=== PATIENT | female | born 1985 | race Caucasian/White ===

== ENCOUNTER 2022-10-21 10:06 | Outpatient (REF) | payer BC, SELFPAY ==
[2022-10-21 13:02] LABS: Hematocrit 42.8 % (37.0-47.0); Hemoglobin 14.1 g/dl (12.0-16.0); Mean Corpuscular HGB Conc 32.9 g/dl (31.0-35.0); Mean Corpuscular Hemoglobin 29.4 pg (27.0-33.0); Mean Corpuscular Volume 89.2 fL (80.0-98.0); Mean Platelet Volume 10.6 fL (9.4-12.3); Platelet Count 315 X10*3/uL (160-400); Red Cell Distribution Width 12.3 % (11.0-16.0); White Blood Count 10.4 X10*3/uL (4.8-10.8)
[2022-10-21 13:18] LABS: Alanine Aminotransferase 17 U/L (0-31); Alkaline Phosphatase 54 U/L (39-117); Anion Gap 11 (12-20); Aspartate Amino Transferase 17 U/L (5-31); Bilirubin Total 0.6 mg/dL (0.0-1.0); Blood Urea Nitrogen 10 mg/dL (9-16); Calcium 8.9 mg/dL (8.4-10.2); Carbon Dioxide 25 mmol/L (22-29); Chloride 108 mmol/L (96-108); Cholesterol 155 mg/dL; Estimated Glomerular Filt Rate > 60; Glucose Fasting 90 mg/dL (60-99); HDL Cholesterol 75 mg/dL; LDL Cholesterol Calculated 63 mg/dl; Potassium 4.3 mmol/L (3.3-5.1); Sodium 140 mmol/L (135-145); Total Protein 6.8 g/dL (6.5-8.0); Triglycerides 88 mg/dL
[2022-10-21 13:34] LABS: TSH reflex Free T4 0.69 uIU/mL (0.32-4.0)
== END 2022-10-21 10:07 | disposition home or self-care (01) ==
LOC: HO.WFDLDS 10:06
PROVIDERS: Visit Provider Nurse Practitioner Family
DX: Z00.00 Encounter for general adult medical examination without abnormal findings (principal)
CPT/HCPCS: 36415; 80053; 80061; 84443; 85027

== ENCOUNTER 2023-03-16 14:03 | Outpatient (REF) | payer BC, SELFPAY ==
[2023-03-21 09:44] LABS: HPV mRNA E6/E7 rflx Not Detected (Not Detected)
== END 2023-03-16 14:04 | disposition home or self-care (01) ==
LOC: HO.LNP 14:03
PROVIDERS: Obstetrics & Gynecology; PCP Nurse Practitioner Family; Visit Provider Advanced Practice Midwife
DX: Z01.419 Encounter for gynecological examination (general) (routine) without abnormal findings (principal); N90.89 Other specified noninflammatory disorders of vulva and perineum
CPT/HCPCS: 87624; 88142

== ENCOUNTER 2023-03-16 14:03 | Outpatient (AMB) | payer BC, SELFPAY ==
--- NOTE | 2023-03-16 14:35 | MHC.OFFVIS ---
Intake Vital Signs 03/16/23 14:37 Height 5 ft 1 in Weight 130 lb BMI 24.6 BP 102/62 Intake Visit Reasons: New Patient Annual Allergies Seasonal Allergies Allergy (Intermediate, Verified 03/16/23 14:38) Itchy Eyes PFSH Medical History Acid reflux Anxiety Depression Incontinence of urine Sinusitis Skin mole Surgical History Hx of appendectomy Family History Father Hyperlipidemia Diabetes Hypertension Maternal Grandmother Thyroid disorder Psychiatric disorder Maternal Grandfather Psychiatric disorder Hypertension Paternal Grandfather Hypertension Social History Household Members: Spouse Both parents involved: Yes Housing: Apartment Alcohol intake: current Alcohol intake frequency: holidays/special occasions only Alcohol type: wine Patient Tobacco Use Status: Former Tobacco user Years Smoked: 10 e-Cigarette/Vaping Use: Never Used Substance Use Type: Marijuana Current occupational status: employed Current occupation: [email or web address] Current occupational exposures/hazards: No Sexual orientation: Straight/Heterosexual Gender identity: Female Cognitive needs: No Hearing needs: No Vision needs: No Female Reproductive History Menstrual Date of last menstrual period: 03/02/23 Physical Exam Vital Signs: Last Vital Signs BP 102/62 03/16/23 14:37 BMI result Body Mass Index 24.6 Assessment & Plan Assessment & Plan Orders: Orders Pap Smear Today Z01.419 - Encounter for gynecological examination (general) (routine) without abnormal findings Medications: Refilled drospirenone-ethinyl estradiol 3-0.03 mg (Brigette (28)) 1 tab PO DAILY 28 tabs 11RF Coding Diagnoses
--- NOTE | 2023-03-16 14:36 | A.OFFVIS_ITS ---
Intake Vital Signs 03/16/23 14:37 Height 5 ft 1 in Weight 130 lb BMI 24.6 BP 102/62 Intake Visit Reasons: New Patient Annual Intake Note: no concerns Manager Therapy Required: No Information Interpreted: non-clinical & clinical Adolescent Psychiatrist: Adolescent Psychiatrist Present (Mara CHEUNG) Accompanied by: Self / Same As Patient Allergies Seasonal Allergies Allergy (Intermediate, Verified 03/16/23 14:38) Itchy Eyes Is last menstrual period known: Yes Last menstrual period: 03/03/23 HPI HPI Comments History of Present Illness Details Presenting for annual exam. No complaints. The patient is on [place] and would like a refill Last Pap/HPV ? [facility] Medical History Acid reflux Anxiety Depression Incontinence of urine Sinusitis Skin mole Surgical History Hx of appendectomy Family History Father Hyperlipidemia Diabetes Hypertension Maternal Grandmother Thyroid disorder Psychiatric disorder Maternal Grandfather Psychiatric disorder Hypertension Paternal Grandfather Hypertension Social History Household Members: Spouse Both parents involved: Yes Housing: Apartment Alcohol intake: current Alcohol intake frequency: holidays/special occasions only Alcohol type: wine Patient Tobacco Use Status: Former Tobacco user Years Smoked: 10 e-Cigarette/Vaping Use: Never Used Substance Use Type: Marijuana Current occupational status: employed Current occupation: [employer] Current occupational exposures/hazards: No Sexually active: Yes Sexual orientation: Straight/Heterosexual Gender identity: Female Cognitive needs: No Hearing needs: No Vision needs: No Female Reproductive History Menstrual Date of last menstrual period: 03/03/23 Total pregnancies: 0 Number of Living Children: 0 Review of Systems Const All systems reviewed & are unremarkable except as noted in HPI and below Card Reports as per HPI Resp Reports as per HPI GI Reports as per HPI and Reports no additional complaints Reports as per HPI Physical Exam Vital Signs: Last Vital Signs BP 102/62 03/16/23 14:37 BMI result Body Mass Index 24.6 Const General: cooperative, healthy appearing and comfortable Chest Chest palpation & inspection: normal inspection of the chest and normal palpation of entire chest wall Breast/axilla inspection: normal inspection of the breasts and normal inspection of the axillae Breast/axilla palpation: normal palpation of the breasts, normal palpation of the axillae and no axillary lymphadenopathy Resp Effort & Inspection: normal respiratory effort Auscultation: clear to auscultation bilaterally Percussion: percussion normal Cardio Palpation: normal PMI Rate: regular rate Rhythm: regular rhythm Heart sounds: no murmurs and no rubs Peripheral pulses: Peripheral pulses 2+ throughout GI Inspection: Yes normal to inspection Palpation (GI): Soft to palpation, nontender, no guarding, not rigid and No hepatosplenomegaly present Percussion: Yes normal to percussion Auscultation: normal bowel sounds Rectal Exam - Female: deferred General: Yes bladder normal to palpation External Female Exam: lesion (Left vulvar 1.5 cm pedunculated lesion) Speculum Exam - Vagina: normal appearance of the vagina, normal palpation, normal vaginal discharge and not erythematous Speculum Exam - Cervix: normal appearance of the cervix and normal palpation Bimanual exam- vagina & uterus: normal bimanual exam, normal palpation, uterine size normal, bladder normal to palpation, consistency normal and normal palpation Bimanual Exam- Adnexa, other: normal adnexae, no masses and no tenderness Assessment & Plan Assessment & Plan (1) Well woman exam: Code(s): Z01.419 - Encounter for gynecological examination (general) (routine) without abnormal findings Plan: Cotesting done. Prescription for control pills refilled. The patient was instructed to perform monthly self-breast exams and to schedule an annual exam in a year; All questions answered and the patient verbalized understanding. Instructed the patient to schedule annual exam in a year (2) Vulvar lesion: Code(s): N90.89 - Other specified noninflammatory disorders of vulva and perineum Plan: Recommended vulvar lesion excision, instructions given the patient to schedule an appointment. All questions answered, the patient verbalized understanding Medications: Refilled drospirenone-ethinyl estradiol 3-0.03 mg (Brigette (28)) 1 tab PO DAILY 28 tabs 11RF Coding Level of Care Code New Pt Prev Care 18-39yr(66299 Diagnoses Well woman exam Z01.419 Vulvar lesion N90.89
[2023-03-16 14:37] VITALS: BP 102/62; BMI 24.6
== END 2023-03-16 15:09 | disposition home or self-care (01) ==
PROVIDERS: PCP Nurse Practitioner Family; Visit Provider Obstetrics & Gynecology
DX: Z01.419 Encounter for gynecological examination (general) (routine) without abnormal findings (principal); N90.89 Other specified noninflammatory disorders of vulva and perineum
CPT/HCPCS: 99385

== ENCOUNTER 2023-04-14 14:45 | Outpatient (AMB) | payer BC, SELFPAY ==
[2023-04-14 15:14] VITALS: BP 108/64; BMI 24.7
--- NOTE | 2023-04-14 15:14 | A.OFFVIS_ITS ---
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 Required: No Information Interpreted: non-clinical & clinical Cloth Packer: Cloth Packer Present (Mara) Allergies Seasonal Allergies Allergy (Intermediate, Verified 04/14/23 15:15) Itchy Eyes Post menopausal: No PFSH Medical History Acid reflux Anxiety Depression Incontinence of urine Sinusitis Skin mole Surgical History Hx of appendectomy Family History Father Hyperlipidemia Diabetes Hypertension Maternal Grandmother Thyroid disorder Psychiatric disorder Maternal Grandfather Psychiatric disorder Hypertension Paternal Grandfather Hypertension Social History Household Members: Spouse Both parents involved: Yes Housing: Apartment Alcohol intake: current Alcohol intake frequency: holidays/special occasions only Alcohol type: wine Patient Tobacco Use Status: Former Tobacco user Years Smoked: 10 e-Cigarette/Vaping Use: Never Used Substance Use Type: Marijuana Current occupational status: employed Current occupation: [employer] Current occupational exposures/hazards: No Sexual orientation: Straight/Heterosexual Gender identity: Female Cognitive needs: No Hearing needs: No Vision needs: No Female Reproductive History Menstrual Date of last pap smear: 03/17/23 (negative) Physical Exam Vital Signs: Last Vital Signs BP 108/64 04/14/23 15:14 BMI result Body Mass Index 24.7 Office Procedures CURRICULUM AND ASSESSMENT COORDINATOR Biopsy Before the procedure was started d/w patient the procedure, alternatives ( do nothing, medical rx), & all the risks associated with the procedure ( bleeding , infection, vulvar scarring, painful intercourse, injury to vessels, possible need for transfusion with all its risks) then patient signed the consent. Preop dx: Left labia majora lesion Op: Left labia majora lesion excision Post op: Same Anesthesia: Lidocaine 1% 3cc used Procedure: Using betadine the area was scrubbed and draped in the usual manner. 7 cc of lidocaine was used for anesthesia at the left Left labia majora lesion area ; using scissors and pickup the left vulvar lesion was excised, 4.0 Vicryl was used to approximate the edges. Pressure was used for hemostasis. The patient tolerated the procedure well. Discharge Instructions: The patient was instructed to schedule an appointment in 2 weeks for follow-up and to call if temp>100.4, area of the biopsy redness or pain, nausea/vomiting. This note was generated with a voice recognition program. Some errors may have been overlooked during the review of this note. Sometimes these errors may affect the content or meaning of a given sentence. [id number] of Vulva/Perineum Procedure code (CPT) selection complete Assessment & Plan Assessment & Plan Orders: Orders AMB CURRICULUM AND ASSESSMENT COORDINATOR Biopsy Today N90.89 - Other specified noninflammatory disorders of vulva and perineum Coding Level of Care Code Procedure Only Diagnoses CPT Codes CURRICULUM AND ASSESSMENT COORDINATOR Biopsy - CPT: 81765-Jdrpdd of Vulva/Perineum ([id number])
== END 2023-04-14 15:41 | disposition home or self-care (01) ==
PROVIDERS: PCP Nurse Practitioner Family; Visit Provider Obstetrics & Gynecology
DX: N90.89 Other specified noninflammatory disorders of vulva and perineum (principal)
CPT/HCPCS: 56605

== ENCOUNTER 2023-04-14 14:45 | Outpatient (REF) | payer BC, SELFPAY | END 2023-04-14 14:46 | disposition home or self-care (01) | LOC: HO.LNP 14:45 | PROVIDERS: PCP Nurse Practitioner Family; Visit Provider Obstetrics & Gynecology | DX: N90.89 Other specified noninflammatory disorders of vulva and perineum (principal) | CPT/HCPCS: 56605; 88305 ==

== ENCOUNTER 2023-06-23 15:18 | Outpatient (AMB) | payer BC, SELFPAY ==
--- NOTE | 2023-06-23 15:25 | MHC.OFFVIS ---
Intake Vital Signs 06/23/23 15:27 Height 5 ft 1 in Weight 130 lb 1.164 oz BMI 24.6 BP 116/76 Intake Visit Reasons: Biopsy Results/DO NOT RS Compressor Mechanic Bus Required: No Information Interpreted: non-clinical & clinical Accompanied by: Self / Same As Patient Allergies Seasonal Allergies Allergy (Intermediate, Verified 06/23/23 15:28) Itchy Eyes HPI HPI Comments History of Present Illness Details Presenting post vulvar biopsy for follow-up. Doing well with no complaints. The pathology showed the following: Vulva, left, biopsy: Dermal nevus [facility] Medical History Skin mole Depression Anxiety Incontinence of urine Acid reflux Sinusitis Surgical History Hx of appendectomy Family History Father Hyperlipidemia Diabetes Hypertension Maternal Grandmother Thyroid disorder Psychiatric disorder Maternal Grandfather Psychiatric disorder Hypertension Paternal Grandfather Hypertension Social History Household Members: Spouse Both parents involved: Yes Housing: Apartment Alcohol intake: current Alcohol intake frequency: holidays/special occasions only Alcohol type: wine Patient Tobacco Use Status: Former Tobacco user Years Smoked: 10 e-Cigarette/Vaping Use: Never Used Substance Use Type: Marijuana Current occupational status: employed Current occupation: [employer] Current occupational exposures/hazards: No Sexual orientation: Straight/Heterosexual Gender identity: Female Cognitive needs: No Hearing needs: No Vision needs: No Female Reproductive History Menstrual Date of last menstrual period: 06/22/23 Review of Systems Const All systems reviewed & are unremarkable except as noted in HPI and below Reports as per HPI and Reports no additional complaints GI Reports no additional complaints Reports no additional complaints Physical Exam Vital Signs: Last Vital Signs BP 116/76 06/23/23 15:27 BMI result Body Mass Index 24.6 Assessment & Plan Assessment & Plan (1) Vulvar lesion: Comment: Left labia majora lesion Code(s): N90.89 - Other specified noninflammatory disorders of vulva and perineum Plan: Discussed with the patient the results of the pathology, the patient was reassured. All questions answered, the patient verbalized understanding . Coding Level of Care Code Est Pt Level 3 (73045) Diagnoses Vulvar lesion N90.89
[2023-06-23 15:27] VITALS: BP 116/76; BMI 24.6
== END 2023-06-23 15:47 | disposition home or self-care (01) ==
PROVIDERS: PCP Nurse Practitioner Family; Visit Provider Obstetrics & Gynecology
DX: N90.89 Other specified noninflammatory disorders of vulva and perineum (principal)
CPT/HCPCS: 99213

== ENCOUNTER → 2023-06-23 15:18 | Outpatient (BNVA) | payer BC, SELFPAY | PROVIDERS: PCP Nurse Practitioner Family; Visit Provider Obstetrics & Gynecology ==

== ENCOUNTER 2023-10-26 14:39 | Outpatient (AMB) | payer BC, SELFPAY ==
[2023-10-26 14:49] VITALS: BP 122/78; PULSE 85; RESP 13; TEMP 36.6; O2SAT 99; BMI 25.0
--- NOTE | 2023-10-26 14:49 | A.OFFPC_ITS ---
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 Required: No Accompanied by: Self / Same As Patient Allergies Seasonal Allergies Allergy (Severe, Verified 10/26/23 15:03) Itchy Eyes Medication List - Last Reconciled 10/26/23 by Isabel Magallanes CNP cetirizine (Zyrtec) 10 mg PO DAILY PRN drospirenone-ethinyl estradiol 3-0.03 mg (Brigette (28)) 1 tab PO DAILY fluticasone propionate 50 mcg/actuation (Flonase Allergy Relief) 1 spray intranasal DAILY Tobacco use date assessed: 10/26/23 Dental Screening Dental Screen Date: 10/26/23 Did you have a dental visit in the last 12 months?: Yes Did you have a dental problem in the last 6 months where you did not have access to dental care?: No Was dental information given to patient?: Patient has dentist HPI HPI Comments History of Present Illness Details 38 y/o female presents for an extended p hysical exam No significant PMH She reports waking up 2-3 times several nights weekly for the 2-3 weeks. She used to not wake up to urinate or would wake up 1 time at night She denies urinary urgency, blood/pain/discharge with urination. Denies constitutional symptoms. She reports adequate hydration during the day but denies excessive fluid intake at night Last Pap smear test was in 03/2023: Normal She notes that she is sexually active, in a monogamous relationship, and has no concerns for STD PFSH Medical History Skin mole Depression Anxiety Incontinence of urine Acid reflux Sinusitis Surgical History Hx of appendectomy Family History (Updated 10/26/23 @ 14:54 by Renuka Her MA) Father Hyperlipidemia Diabetes Hypertension Maternal Grandmother Thyroid disorder Psychiatric disorder Maternal Grandfather Psychiatric disorder Hypertension Paternal Grandfather Hypertension Other Mental health disorder Social History Household Members: Spouse Housing: Apartment Alcohol intake: current Alcohol intake frequency: holidays/special occasions only Alcohol type: wine Patient Tobacco Use Status: Former Tobacco user Years Smoked: 10 e-Cigarette/Vaping Use: Former Use Substance Use Type: Marijuana service: No Current occupational status: employed Current occupation: [employer] Current occupational exposures/hazards: No Sexual orientation: Straight/Heterosexual Gender identity: Female Cognitive needs: No Hearing needs: No Vision needs: No Questionnaire PHQ-9 Over the last 2 weeks, how often have you been bothered by any of the following problems? 1. Little interest or pleasure in doing things: not at all 2. Feeling down, depressed, or hopeless: not at all 3. Trouble falling or staying asleep, or sleeping too much: not at all 4. Feeling tired or having little energy: not at all 5. Poor appetite or overeating: not at all 6. Feeling bad about yourself - or that you are a failure or have let yourself or your family down: not at all 7. Trouble concentrating on things, such as reading the newspaper or watching television: not at all 8. Moving or speaking so slowly that other people could have noticed. Or the opposite - being so fidgety or restless that you have been moving around a lot more than usual: not at all 9. Thoughts that you would be better off or of hurting yourself in some way: not at all Total score: 0 Depression Screening Interpretation: Negative Depression Screening Done: Yes 51693 - PHQ-9 Billing: Yes Source: Developed by Drs. Reji Polanco, Kylah Israel, Jonny Red and colleagues, with an educational riya from [employer]. Thrive Questionnaire Date Thrive assessed: 10/26/23 I am a: Patient What is your living situation today?: I have a steady place to live Within the past 12 months, did the food you bought not last and you didn't have the money to get more?: Never true Within the past 12 months, did you worry whether your food would run out before you got money to buy more?: Never true Do you have trouble paying for medicines?: No Do you have trouble getting transportation to medical appointments?: No Do you have trouble paying your heating and electricity bill?: No Do you have trouble taking care of your child, family member or friend?: No Do you have trouble with day-to-day activities such as bathing, preparing meals, shopping, managing finances, etc.?: No Are you currently unemployed and looking for a job?: No Are you interested in more education?: No Please select the resources that you would like help with: None Currently or been in a relationship where the following occur: no concerns reported THRIVE Score: 0 AUDIT C Alcohol Use Questionnaire (AUDIT-C) 1. How often do you have a drink containing alcohol?: Monthly or less 2. How many drinks containing alcohol do you have on a typical day when you are drinking?: 1 or 2 3. How often do you have six or more drinks on one occasion?: Never Total Score: 1 NELI-7 AMB Questionnaire NELI-7 Date NELI - 7 assessed: 10/26/23 Feeling nervous, anxious, or on edge: 0 = Not at all Not being able to stop or control worryin = Not at all Worrying too much about different things: 0 = Not at all Trouble relaxin = Not at all Being so restless that it is hard to sit still: 0 = Not at all Becoming easily annoyed or irritable: 0 = Not at all Feeling afraid as if something awful might happen: 0 = Not at all Total NELI-7 score (0-4 normal; 5-9 mild; 10-14 moderate; 15-21 severe): 0 Source: Developed by Drs. Rjei Polanco, Kylah Israel, Jonny Red and colleagues, with an educational riya from [employer]. NELI-7 Assessment Billing NELI-7 Assessment Tool: NELI-7 Assessment 85944 Review of Systems Const Details: Denies chills, Denies fatigue, Denies fever(s), Denies headache(s) and Denies weakness HEENT Denies change in vision, Denies dizziness, Denies headache(s), Denies hearing loss, Denies nasal congestion, Denies sinus pain, Denies sinus pressure and Denies sore throat Card Denies chest pain, Denies lightheadedness, Denies dyspnea and Denies other (palpitations) Resp Denies cough, Denies dyspnea and Denies wheezing GI Denies abdominal pain, Denies melena, Denies hematochezia, Denies change in bowel habits, Denies dyspepsia and Denies nausea Reports frequent urination, Denies hematuria and Denies dysuria Musc Denies abnormal gait, Denies myalgias, Denies arthralgias, Denies numbness and Denies tingling Skin/Breast Denies rash, Denies unusual bruising and Denies wounds Neuro Denies abnormal gait, Denies dizziness, Denies headache(s), Denies memory loss, Denies numbness, Denies Sensory deficit (Neuro), Denies tingling and Denies weakness Psych Denies anxiety, Denies depression and Denies memory loss Endo Denies cold intolerance, Denies fatigue, Denies heat intolerance, Denies polydipsia and Denies polyuria Albino/Lymph Denies easy bleeding and Denies easy bruising Aller/Immun Denies wheezing Physical exam (Primary Care) Vital Signs: Last Vital Signs Temp 97.8 F 10/26/23 14:49 Pulse 85 10/26/23 14:49 Resp 13 10/26/23 14:49 BP 122/78 10/26/23 14:49 Pulse Ox 99 10/26/23 14:49 Oxygen Delivery Method Room Air 10/26/23 14:49 BMI result Body Mass Index 25.0 Tobacco/Smoking Status: Tobacco use Status Tobacco use date assessed 10/26/23 10/26/23 14:57 Patient Tobacco Use Status Former Tobacco user 10/26/23 14:57 e-Cigarette/Vaping Use Former Use 10/26/23 14:57 PHQ-9: PHQ-9 Score PHQ-9: Total score 0 10/26/23 15:03 Depression Screening Interpretation: Negative Thrive Assessment: Date of Thrive Assessment Date Thrive assessed 10/26/23 10/26/23 14:57 Currently or been in a relationship where the following occur: no concerns reported Const Other: General: no acute distress, well developed, alert and awake Nutritional Appearance: well nourished Orientation/consciousness: patient oriented x3 HENMT Head: Yes normocephalic and Yes atraumatic Ears: hearing grossly normal bilaterally and TM's normal bilaterally General nose exam: Normal external nose present and Normal nares present Mouth: Normal oral and palatal mucosa present and moist mucous membranes Teeth and gingiva: dentition normal Throat: Yes oropharynx normal Eyes Pupils: Equal, round and reactive pupils present and Pupil accommodation reflex normal EOM: EOMs intact bilaterally Neck Neck: Yes normal visual inspection, Yes no lymphadenopathy and Yes trachea midline Thyroid: Thyroid normal Carotids: no bruits Lymphatic: no lymphadenopathy noted Chest Chest palpation & inspection: normal inspection of the chest Resp Effort & Inspection: normal respiratory effort Auscultation: clear to auscultation bilaterally Cardio Rate: regular rate Rhythm: regular rhythm Heart sounds: S1 normal heart sound present, S2 normal heart sound present, no gallops, no murmurs and no rubs Bruits: no abdominal aortic bruits and no carotid bruits GI Palpation (GI): No Abdominal aortic bruit present, Soft to palpation, nontender, No hepatosplenomegaly present and No Rebound tenderness present Auscultation: normal bowel sounds General: Yes no CVA tenderness Back/Spine/Pelvis Back: no CVA tenderness Cervical Spine: cervical ROM normal and No Cervical spine tenderness Thoracic/Lumbar Spine: thoraco-lumbar ROM normal, No pain with thoraco-lumbar ROM, No thoracic spinal tenderness and No lumbar spinal tenderness Skin General: warm and dry. Normal skin color. Normal skin turgor Lesions: no lesions Rashes: no rashes Trauma: no lacerations or abrasions Wounds: no wounds Nails: normal Neuro General: patient oriented x3, gait normal and CN's II-XI intact bilaterally Cranial nerves: Yes Equal, round and reactive pupils present Cognition (Neuro): normal cognition Gait exam (Neuro): Normal gait present Motor exam (neuro): 5/5 motor strength present throughout Sensory Exam: No Sensory deficit (Neuro) Deep tendon reflexes (DTR's): Right patellar reflex intensity grade: 2+ and Left patellar reflex intensity grade: 2+ Extrem General: Yes normal to inspection, No edema and No calf tenderness Psych Appearance: grossly normal Affect: normal affect Attitude: cooperative Thought process: Normal thought process present Assessment and Plan Assessment & Plan (1) Physical exam, annual: Code(s): Z00.00 - Encounter for general adult medical examination without abnormal findings Plan: No significant physical restrictions or limitations noted Healthy diet and routine exercise encouraged Advised to get fasting blood work done and follow-up in 2-3 weeks for telehealth visit for labs review Return sooner with symptoms or concerns Verbalized understanding and agreed with treatment plan (2) Frequent urination at night: Code(s): R35.1 - Nocturia Plan: Reports waking up 2-3 times every night to urinate for the past 2-3 weeks. No associated symptoms Sleep hygiene, occluding limiting hydration before bedtime Will check urinalysis for UTI Will also check fasting glucose Advised to follow-up with worsening or new symptoms Verbalized understanding and agreed with the plan (3) Laboratory tests ordered as part of a complete physical exam (CPE): Code(s): Z00.00 - Encounter for general adult medical examination without abnormal findings Plan: Fasting labs ordered as part of a complete physical exam. Advised to fast for at least 10 hours before getting labs drawn. May drink water Verbalized understanding and agreed with treatment plan. Orders: Orders UA CC w/rflx Micro + Cult Today Z00.00 - Encounter for general adult medical examination without abnormal findings Complete Blood Count Auto Diff Today Z00.00 - Encounter for general adult medical examination without abnormal findings Comprehensive Delta. Panel Fast Today Z00.00 - Encounter for general adult medical examination without abnormal findings Lipid Panel Today Z00.00 - Encounter for general adult medical examination without abnormal findings TSH reflex Free T4 Today Z00.00 - Encounter for general adult medical examination without abnormal findings Coding Level of Care Code Est Pt Prev Care 18-39y(18811) Diagnoses Physical exam, annual Z00.00 Frequent urination at night R35.1 Laboratory tests ordered as part of a complete physical exam (CPE) Z00.00 Additional Codes NELI-7 Assessment Billing - NELI-7 Assessment Tool: NELI-7 Assessment 41392 ([id number])
== END 2023-10-26 15:29 | disposition home or self-care (01) ==
PROVIDERS: Visit Provider Nurse Practitioner Family
DX: Z00.00 Encounter for general adult medical examination without abnormal findings (principal); R35.1 Nocturia
CPT/HCPCS: 99395

== ENCOUNTER 2023-10-27 07:07 | Outpatient (REF) | payer BC, SELFPAY ==
[2023-10-27 11:19] LABS: MANUAL DIFF FLAG NO
[2023-10-27 11:27] LABS: Appearance Urine Clear; Color Urine Yellow; Glucose Urine UA Negative (Negative); Leukocyte Esterase Urine Negative (Negative); Nitrite Urine Negative (Negative); PH 5.5 (5.0-9.0); Specific Gravity - Urine <= 1.005 (1.005-1.025); Urine Blood Negative (Negative); Urine Ketones Negative (Negative); Urine Protein Negative (Neg-Trace)
[2023-10-27 11:33] LABS: Basophils Absolute Auto 0.1 X10*3/uL (0.0-0.2); Basophils Percent Auto 0.4 % (0-2); Eosinophils Absolute Auto 0.5 X10*3/uL (0.0-0.4); Hematocrit 41.5 % (37.0-47.0); Hemoglobin 13.7 g/dl (12.0-16.0); Imm Gran Abs Auto 0.05 X10*3/uL (0.00-0.03); Imm Gran Pct Auto 0.4 % (0.0-0.4); Lymphocytes Absolute Auto 3.4 X10*3/uL (1.2-4.9); Lymphocytes Percent Auto 30.2 % (20-40); Mean Corpuscular Hemoglobin 29.3 pg (27.0-33.0); Mean Corpuscular Volume 88.9 fL (80.0-98.0); Mean Platelet Volume 11.3 fL (9.4-12.3); Monocytes Absolute Auto 0.7 X10*3/uL (0.1-1.2); Monocytes Percent Auto 6.7 % (2-11); Neutrophils Absolute Auto 6.5 x10*3/uL (2.0-8.3); Neutrophils Percent Auto 58.3 % (45-73); Platelet Count 303 X10*3/uL (160-400); Red Blood Count 4.67 X10*6/uL (4.20-5.50); Red Cell Distribution Width 12.6 % (11.0-16.0); White Blood Count 11.1 X10*3/uL (4.8-10.8)
[2023-10-27 12:39] LABS: Alanine Aminotransferase 14 U/L (0-31); Albumin Level 3.8 g/dL (3.5-5.0); Alkaline Phosphatase 56 U/L (39-117); Anion Gap 12 (12-20); Aspartate Amino Transferase 17 U/L (5-31); Bilirubin Total 0.4 mg/dL (0.0-1.0); Blood Urea Nitrogen 8 mg/dL (9-16); Calcium 9.1 mg/dL (8.4-10.2); Carbon Dioxide 24 mmol/L (22-29); Chloride 106 mmol/L (96-108); Cholesterol 138 mg/dL (<200); Estimated Glomerular Filt Rate > 60; Glucose Fasting 89 mg/dL (60-99); HDL Cholesterol 73 mg/dL (>40); LDL Cholesterol Calculated 44 mg/dL (<100); Potassium 3.8 mmol/L (3.3-5.1); Sodium 138 mmol/L (135-145); TSH reflex Free T4 0.93 uIU/mL (0.32-4.0); Total Protein 6.9 g/dL (6.5-8.0); Triglycerides 109 mg/dL (<150)
== END 2023-10-27 07:08 | disposition home or self-care (01) ==
LOC: HO.WFDLDS 07:07
PROVIDERS: Visit Provider Nurse Practitioner Family
DX: Z00.00 Encounter for general adult medical examination without abnormal findings (principal); Z13.6 Encounter for screening for cardiovascular disorders
CPT/HCPCS: 36415; 80053; 80061; 81003; 84443; 85025

== ENCOUNTER 2023-11-16 15:49 | Outpatient (AMB) | payer BC, SELFPAY ==
--- NOTE | 2023-11-16 16:04 | MHC.PC.OV ---
Intake Visit Reasons: follow up lab review Intake Note: Patient is here to follow up on Lab results. Seismic Interpreter Required: No Track Manager: Not Required per policy Accompanied by: Self / Same As Patient Allergies Seasonal Allergies Allergy (Severe, Verified 11/16/23 16:08) Itchy Eyes Tobacco use date assessed: 11/16/23 Dental Screening Dental Screen Date: 10/26/23 HPI HPI Comments History of Present Illness Details Patient presents for telehealth visit for review of recent lab results She denies acute symptoms at this time She had an extended physical exam done on 10/26/2023 She reports improved nocturia after she cut down on drinking fluids at night; now 1-2 times several days a week, from 2-3 times weekly. No pain, discharge, or bloody urine [facility] Medical History Skin mole Depression Anxiety Incontinence of urine Acid reflux Sinusitis Surgical History Hx of appendectomy Family History Father Hyperlipidemia Diabetes Hypertension Maternal Grandmother Thyroid disorder Psychiatric disorder Maternal Grandfather Psychiatric disorder Hypertension Paternal Grandfather Hypertension Other Mental health disorder Social History Household Members: Spouse Both parents involved: Yes Housing: Apartment Alcohol intake: current Alcohol intake frequency: holidays/special occasions only Alcohol type: wine Patient Tobacco Use Status: Former Tobacco user Years Smoked: 10 e-Cigarette/Vaping Use: Former Use Second Hand Smoke Exposure: Yes Substance Use Type: Marijuana service: No Current occupational status: employed Current occupation: [employer] Current occupational exposures/hazards: No Sexual orientation: Straight/Heterosexual Gender identity: Female Cognitive needs: No Hearing needs: No Vision needs: No Questionnaire Thrive Questionnaire Date Thrive assessed: 10/26/23 NELI-7 AMB Questionnaire NELI-7 Date NELI - 7 assessed: 10/26/23 Source: Developed by Drs. Reji Polanco, Kylah Israel, Jonny Red and colleagues, with an educational riya from [employer]. Review of Systems Const Details: Const Denies chills, Denies fatigue, Denies fever(s), Denies headache(s) and Denies weakness ENT Denies dizziness and Denies headache(s) Card Denies chest pain, Denies lightheadedness, Denies dyspnea and Denies other (Palpitations) Resp Denies cough, Denies dyspnea, Denies wheezing and Denies other ( shortness of breath) GI Denies abdominal pain, Denies melena, Denies hematochezia, Denies change in bowel habits, Denies dyspepsia and Denies nausea Reports nocturia, Denies hematuria and Denies dysuria Musc Denies abnormal gait, Denies myalgias, Denies arthralgias, Denies numbness and Denies tingling Skin/Breast Denies rash, Denies unusual bruising and Denies wounds Neuro Denies abnormal gait, Denies dizziness, Denies headache(s), Denies memory loss, Denies numbness, Denies Sensory deficit (Neuro), Denies tingling and Denies weakness Psych Denies anxiety, Denies depression, Denies memory loss Endo Denies cold intolerance, Denies fatigue, Denies heat intolerance, Denies polydipsia and Denies polyuria Aller/Immun Denies wheezing Physical exam (Primary Care) Tobacco/Smoking Status: Tobacco use Status Tobacco use date assessed 11/16/23 11/16/23 16:08 Patient Tobacco Use Status Former Tobacco user 11/16/23 16:08 e-Cigarette/Vaping Use Former Use 11/16/23 16:08 Thrive Assessment: Date of Thrive Assessment Date Thrive assessed 10/26/23 11/16/23 16:08 Const Other: Telehealth visit. No physical exam Telehealth Telehealth Location of provider rendering services: practice address Location of patient: address on file Patient Identification confirmed using: Name, : Yes Telehealth method: voice only Patient verbally consented to treatment: Yes Patient verbally consented to billing insurance company: Yes Patient informed of any privacy concerns related to visit: Yes Assessment and Plan Assessment & Plan (1) Frequent urination at night: Code(s): R35.1 - Nocturia Plan: Improved to 1-2 times nightly from 2-3 times nightly after she cut down on nighttime fluid intake Recent lab results reviewed. Unremarkable findings No UTI Instructed on sleep hygiene to reduce nocturia Advised to schedule an appointment for complete physical exam in a year from her last physical Return sooner with symptoms or concerns Verbalized understanding and agreed with the treatment plan Coding Level of Care Code Tele Est Pt Level 2 (32798) Diagnoses Frequent urination at night R35.1 Time Spent (min) 10
== END 2023-11-16 17:03 | disposition home or self-care (01) ==
LOC: HO.HMGFM 15:49
PROVIDERS: PCP Nurse Practitioner Family; Visit Provider Nurse Practitioner Family
DX: R35.1 Nocturia (principal)
CPT/HCPCS: 99441

== ENCOUNTER 2024-05-12 | Outpatient (REF) | payer BC, SELFPAY ==
[2024-05-14 14:19] LABS: CT PCR NOT DETECTED (Not Detect.); NG PCR NOT DETECTED (Not Detect.)
== END 2024-05-12 00:01 | disposition home or self-care (01) ==
LOC: HO.LNP
PROVIDERS: Visit Provider Obstetrics & Gynecology
DX: R10.2 Pelvic and perineal pain (principal)
CPT/HCPCS: 87491; 87591

== ENCOUNTER 2024-05-12 14:56 | Outpatient (AMB) | payer BC, SELFPAY ==
[2024-05-12 15:01] VITALS: BP 110/70; BMI 23.4
--- NOTE | 2024-05-12 15:01 | A.OFFVIS_ITS ---
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 Complaining of cyclic premenstrual headache on cyclic control pills and pelvic pain with no associated urinary or GI symptoms no vaginal discharge or bleeding. Last Pap/HPV was negative in 04/01 [facility] Medical History Skin mole Depression Anxiety Incontinence of urine Acid reflux Sinusitis Surgical History Hx of appendectomy Family History Father Hyperlipidemia Diabetes Hypertension Maternal Grandmother Thyroid disorder Psychiatric disorder Maternal Grandfather Psychiatric disorder Hypertension Paternal Grandfather Hypertension Other Mental health disorder Social History Household Members: Spouse Both parents involved: Yes Housing: Apartment Alcohol intake: current Alcohol intake frequency: holidays/special occasions only Alcohol type: wine Patient Tobacco Use Status: Former Tobacco user Years Smoked: 10 e-Cigarette/Vaping Use: Former Use Second Hand Smoke Exposure: Yes Substance Use Type: Marijuana service: No Current occupational status: employed Current occupation: [email or web address] Current occupational exposures/hazards: No Sexual orientation: Straight/Heterosexual Gender identity: Female Cognitive needs: No Hearing needs: No Vision needs: No Female Reproductive History Menstrual Date of last menstrual period: 04/25/24 control method: pills Total pregnancies: 0 Date of last pap smear: 03/16/23 (neg pap and hpv) Review of Systems Const All systems reviewed & are unremarkable except as noted in HPI and below Card Reports as per HPI Resp Reports as per HPI GI Reports as per HPI and Reports no additional complaints Reports as per HPI Physical Exam Vital Signs: BMI result Body Mass Index 23.4 Const General: cooperative, healthy appearing and comfortable Chest Chest palpation & inspection: normal inspection of the chest and normal palpation of entire chest wall Breast/axilla inspection: normal inspection of the breasts and normal inspection of the axillae Breast/axilla palpation: normal palpation of the breasts, normal palpation of the axillae and no axillary lymphadenopathy Resp Effort & Inspection: normal respiratory effort Auscultation: clear to auscultation bilaterally Percussion: percussion normal Cardio Palpation: normal PMI Rate: regular rate Rhythm: regular rhythm Heart sounds: no murmurs and no rubs Peripheral pulses: Peripheral pulses 2+ throughout GI Inspection: Yes normal to inspection Palpation (GI): Soft to palpation, nontender, no guarding, not rigid and No hepatosplenomegaly present Percussion: Yes normal to percussion Auscultation: normal bowel sounds Rectal Exam - Female: deferred General: Yes bladder normal to palpation External Female Exam: No lesion Speculum Exam - Vagina: normal appearance of the vagina, normal palpation, normal vaginal discharge and not erythematous Speculum Exam - Cervix: normal appearance of the cervix and normal palpation Bimanual exam- vagina & uterus: normal bimanual exam, normal palpation, uterine size normal, bladder normal to palpation, consistency normal and normal palpation Bimanual Exam- Adnexa, other: normal adnexae, no masses and no tenderness Assessment & Plan Assessment & Plan (1) Well woman exam: Code(s): Z01.419 - Encounter for gynecological examination (general) (routine) without abnormal findings Category: Medical Plan: Cotesting not indicated this year. Counseled the patient about the recommended dietary allowance of 1000 mg of Calcium & 600 IU of vitamin D. The patient was instructed to perform monthly self-breast exams and to schedule an annual exam in a year; All questions answered and the patient verbalized understanding. Instructed the patient to schedule annual exam in a year (2) Pelvic pain: Code(s): R10.2 - Pelvic and perineal pain Category: Medical Plan: Urine dip and test done in the office were both negative. GC and chlamydia taken and pelvic ultrasound ordered. Discussed with the patient the differential diagnosis of pelvic pain including but not limited to adnexal, uterine masses, pelvic infections (PID), GI the (Irritable bowel syndrome, diverticulitis, others), musculoskeletal, myofascial pain abdominal wall , adhesions, endometriosis, psychological and others causes. Will check results and treat accordingly. All questions answered, the patient verbalized understanding. Instructed the patient to schedule follow-up appointment in 2 weeks (3) Contraceptive management: Code(s): Z30.9 - Encounter for contraceptive management, unspecified Category: Medical Plan: Discussed with the patient the options of treatment regarding headache premenstrual, recommended the switch to either Mirena IUD or continuous control pills. All pros and cons, risks and benefits of each were discussed with the patient, the patient decided to proceed with continuous control pills. Seasonique prescription for 3 months sent to the patient's pharmacy. Instructions given the patient to start the pills after the 3rd week of active pills of the current pill and to schedule a 3 month follow-up appointment. All questions answered, the patient verbalized understanding Orders: Orders US pelvic and transvaginal Today R10.2 - Pelvic and perineal pain Medications: New L norgest/e.estradiol-e.estrad 0.15 mg-30 mcg (84)/10 mcg (7) 1 tab PO DAILY 84 days 84 ea 0RF Discontinued drospirenone-ethinyl estradiol 3-0.03 mg (Brigette (28)) Discontinued Reason: Doctor's Order 1 tab PO DAILY 28 tabs 11RF Coding Level of Care Code Est Pt Prev Care 18-39y(33936) Diagnoses Well woman exam Z01.419 Pelvic pain R10.2 Contraceptive management Z30.9
== END 2024-05-12 15:34 | disposition home or self-care (01) ==
LOC: HO.HWS 14:56
PROVIDERS: PCP Nurse Practitioner Family; Visit Provider Obstetrics & Gynecology
DX: Z01.419 Encounter for gynecological examination (general) (routine) without abnormal findings (principal); R10.2 Pelvic and perineal pain; Z30.9 Encounter for contraceptive management, unspecified; Z32.02 Encounter for pregnancy test, result negative
CPT/HCPCS: 99395

== ENCOUNTER 2024-05-12 14:56 | Outpatient (REF) | payer BC, SELFPAY | END 2024-05-12 14:57 | disposition home or self-care (01) | LOC: HO.LNP 14:56 | PROVIDERS: PCP Nurse Practitioner Family; Visit Provider Obstetrics & Gynecology | DX: Z32.02 Encounter for pregnancy test, result negative (principal) | CPT/HCPCS: 81025 ==

== ENCOUNTER 2024-05-17 13:30 | Outpatient (REF) | payer BC, SELFPAY ==
--- NOTE | ~2024-05-17 | US_ITS ---
EXAMINATION: US PELVIS CLINICAL INFORMATION: Pelvic and perineal pain. COMPARISON: None available. TECHNIQUE: Ultrasound of the pelvis is performed using both transabdominal and transvaginal transducers along with Doppler. Transvaginal imaging is performed due to inadequate visualization transabdominally. FINDINGS: Uterus: The uterus is anteverted and measures 7.3 x 2.5 x 3.4 cm. The double wall endometrial thickness is 2 mm. The uterus is smooth in contour and has normal myometrial echogenicity. A single small mural fibroid seen on the right measuring 0.6 cm. Some calcification and cystic areas are seen in the lower uterine segment. Adnexa: Both ovaries are visualized. There is normal color flow to the adnexa. There is no ovarian torsion. There is no pelvic ascites or fluid collection. Right ovary measures 2.0 x 1.1 x 1.5 cm for a volume of 1.7 mL. Left ovary measures 1.7 x 1.0 x 1.0 cm for a volume of 0.9 mL. US/US pelvic and transvaginal IMPRESSION: A cause for the patient's pelvic pain has not been found. Incidental note made of a small uterine fibroid. Electronically signed by: Eyal Bloton MD 07/09/2024 10:46 AM EST
== END 2024-05-17 13:31 | disposition home or self-care (01) ==
LOC: HO.US 13:30
PROVIDERS: PCP Nurse Practitioner Family; Visit Provider Obstetrics & Gynecology
DX: R10.2 Pelvic and perineal pain (principal)
CPT/HCPCS: 76830; 76856

== ENCOUNTER 2024-07-18 15:03 | Outpatient (AMB) | payer BC, SELFPAY ==
--- NOTE | 2024-07-18 15:06 | MHC.OFFVIS ---
Intake Visit Reasons: Ultrasound Follow up Motorman/Woman: Motorman/Woman Present (Juliet ) Accompanied by: Self / Same As Patient Allergies Seasonal Allergies Allergy (Severe, Verified 07/18/24 15:06) Itchy Eyes HPI Comments Details: Presenting for follow-up regarding her pelvic pain. Her pain has resolved completely The patient is doing well. The following workup was done so far: GC/CT negative. Last visit urine test was negative. Last visit urine dip was negative. Pelvic ultrasound showed the following: Uterus: The uterus is anteverted and measures 7.3 x 2.5 x 3.4 cm. The double wall endometrial thickness is 2 mm. The uterus is smooth in contour and has normal myometrial echogenicity. A single small mural fibroid seen on the right measuring 0.6 cm. Some calcification and cystic areas are seen in the lower uterine segment. Adnexa: Both ovaries are visualized. There is normal color flow to the adnexa. There is no ovarian torsion. There is no pelvic ascites or fluid collection. Right ovary measures 2.0 x 1.1 x 1.5 cm for a volume of 1.7 mL. Left ovary measures 1.7 x 1.0 x 1.0 cm for a volume of 0.9 mL. [facility] Medical History Skin mole Depression Anxiety Incontinence of urine Acid reflux Sinusitis Surgical History Hx of appendectomy Family History Father Hyperlipidemia Diabetes Hypertension Maternal Grandmother Thyroid disorder Psychiatric disorder Maternal Grandfather Psychiatric disorder Hypertension Paternal Grandfather Hypertension Other Mental health disorder Social History Household Members: Spouse Both parents involved: Yes Housing: Apartment Alcohol intake: current Alcohol intake frequency: holidays/special occasions only Alcohol type: wine Patient Tobacco Use Status: Former Tobacco user Years Smoked: 10 e-Cigarette/Vaping Use: Former Use Second Hand Smoke Exposure: Yes Substance Use Type: Marijuana service: No Current occupational status: employed Current occupation: [employer] Current occupational exposures/hazards: No Sexual orientation: Straight/Heterosexual Gender identity: Female Cognitive needs: No Hearing needs: No Vision needs: No Review of Systems Const All systems reviewed & are unremarkable except as noted in HPI and below Reports as per HPI and Reports no additional complaints GI Reports no additional complaints Reports no additional complaints Assessment & Plan Assessment & Plan (1) Uterine myoma: Code(s): D25.9 - Leiomyoma of uterus, unspecified Category: Medical Plan: Discussed with the patient the findings on pelvic ultrasound & the risk of myosarcoma; discussed with the patient the options of treatment including expectant management versus surgical management; the pros and cons, risks benefits of each approach were discussed with the patient including the fact that in cases of myosarcoma, surgical treatment can lead to early diagnosis and positively affects the prognosis; after further discussion, the patient decided to proceed with expectant management. Will repeat pelvic ultrasound periodically. Instructions given to patient to call in case any of the following occurs: pressure symptoms, abnormal uterine bleeding, pelvic pain; and to schedule a 9-months pelvic ultrasound (order placed) and a follow-up appointment . All questions answered, the patient verbalized understanding and agreed with the plan . (2) Pelvic pain: Code(s): R10.2 - Pelvic and perineal pain Category: Medical Plan: Discussed with the patient the results of the workup done including negative GC/chlamydia, urine dip, urine test and pelvic ultrasound. Differential diagnosis of director it project causes that have not be ruled out yet include but not limited to endometriosis, pelvic adhesions or other. Recommended for the patient if the pain persists will call back and/or to see her PCP ; Meanwhile, instructions were given the patient to go to emergency room or call in case of fever above 100.4, heavy vaginal bleeding, persistence or worsening of her pelvic pain. All questions answered, the patient verbalized understanding. Orders: Orders US pelvic and transvaginal 9 Months D25.9 - Leiomyoma of uterus, unspecified Coding Level of Care Code Est Pt Level 3 (09106) Diagnoses Uterine myoma D25.9 Pelvic pain R10.2
== END 2024-07-18 15:24 | disposition home or self-care (01) ==
PROVIDERS: PCP Nurse Practitioner Family; Visit Provider Obstetrics & Gynecology
DX: D25.9 Leiomyoma of uterus, unspecified (principal); R10.2 Pelvic and perineal pain
CPT/HCPCS: 99213

== ENCOUNTER → 2024-07-18 15:03 | Outpatient (BNVA) | payer BC, SELFPAY | PROVIDERS: PCP Nurse Practitioner Family; Visit Provider Obstetrics & Gynecology ==

== ENCOUNTER 2024-10-28 15:08 | Outpatient (AMB) | payer BC, SELFPAY ==
--- NOTE | 2024-10-28 15:11 | A.OFFPC_ITS ---
Vital Signs 10/28/24 15:15 10/28/24 15:28 Height 5 ft 1 in Weight 134 lb BMI 25.3 BP 139/70 112/76 Blood Pressure Location Rt brachial Lt brachial Position Sitting Sitting Respiration 16 Pulse 110 H 100 Pulse Source Pulse Oximeter Auscultation Temp 98.3 F Temp Source Oral Pulse Oximetry (%) 97 Oxygen Delivery Method Room Air Intake Visit Reasons: CPE Intake Note: patient here for CPE Portfolio Consultant Required: No Is last menstrual period known: Yes Last menstrual period: 08/14/24 Post menopausal: No Patient : No Allergies Seasonal Allergies Allergy (Severe, Verified 10/28/24 15:25) Itchy Eyes Medication List - Last Reconciled 10/28/24 by Isabel Magallanes CNP cetirizine (Zyrtec) 10 mg PO DAILY PRN fluticasone propionate 50 mcg/actuation (Flonase Allergy Relief) 1 spray intranasal DAILY L norgest/e.estradiol-e.estrad 0.15 mg-30 mcg (84)/10 mcg (7) 1 tab PO DAILY 84 days Tobacco use date assessed: 10/28/24 Dental Screening Dental Screen Date: 10/28/24 Did you have a dental visit in the last 12 months?: Yes Did you have a dental problem in the last 6 months where you did not have access to dental care?: No Was dental information given to patient?: Patient has dentist HPI HPI Comments 2 History of Present Illness Details 39-year-old female presents for extended physical exam. Acute issue(s) - Reports hot flashes and sweating espec ially at night. Her symptoms have been ongoing for the past 1 year and intensified after her seed packer changed her OCP in 05/2024. Her symptoms have been ongoing for the past 1 year and has progressively worsened. She has family of perimenopause in the last 30s. - Anxiety and depressive symptoms are ge nerally well controlled. She has never been on psychotropic medication. No history of psychotherapy. No hospitalization for anxiety or depression. - Myopia: wears prescription glasses Past Medical History - Myopia, Anxiety, depression, acid refl ux, sinusitis, uterine myoma Social History - Former smoker. History of vaping. Drin ks 1 glass of wine monthly. Smokes a hit of cannabis few times weekly - Has been making healthy dietary choice s. Exercises routinely. Generally sleep well Health maintenance - Last eye exam was over a year ago. She will follow up with Ophthalmology for routine eye exam. She will sign a release for her PCP to obtain her Ophthalmology record - Last dental visit was 6 months ago. Malcolm mohamud has a dental appointment next - Last tetanus vaccine was more than 10 years ago; received Tdap vaccine today - Has not been vaccinated for the flu ; declines vaccination - Last pap smear test was in 03/2023 [facility] Medical History Skin mole Depression Anxiety Incontinence of urine Acid reflux Sinusitis Surgical History Hx of appendectomy Family History Father Hyperlipidemia Diabetes Hypertension Maternal Grandmother Thyroid disorder Psychiatric disorder Maternal Grandfather Psychiatric disorder Hypertension Paternal Grandfather Hypertension Other Mental health disorder Social History Household Members: Spouse Both parents involved: Yes Housing: Apartment Alcohol intake: current Alcohol intake frequency: holidays/special occasions only Alcohol type: wine Patient Tobacco Use Status: Former Tobacco user Years Smoked: 10 e-Cigarette/Vaping Use: Former Use Second Hand Smoke Exposure: Yes Substance Use Type: Marijuana service: No Current occupational status: employed Current occupation: [employer] Current occupational exposures/hazards: No Sexual orientation: Straight/Heterosexual Gender identity: Female Cognitive needs: No Hearing needs: No Vision needs: No Female Reproductive History Menstrual Date of last menstrual period: 08/14/24 Questionnaire PHQ-9 Over the last 2 weeks, how often have you been bothered by any of the following problems? 1. Little interest or pleasure in doing things: not at all 2. Feeling down, depressed, or hopeless: not at all 3. Trouble falling or staying asleep, or sleeping too much: not at all 4. Feeling tired or having little energy: not at all 5. Poor appetite or overeating: not at all 6. Feeling bad about yourself - or that you are a failure or have let yourself or your family down: not at all 7. Trouble concentrating on things, such as reading the newspaper or watching television: not at all 8. Moving or speaking so slowly that other people could have noticed. Or the opposite - being so fidgety or restless that you have been moving around a lot more than usual: not at all 9. Thoughts that you would be better off or of hurting yourself in some way: not at all Total score: 0 Depression Screening Interpretation: Negative Depression Screening Done: Yes 78356 - PHQ-9 Billing: Yes Source: Developed by Drs. Reji Polanco, Kylah Israel, Jonny Red and colleagues, with an educational riya from [employer]. Thrive Questionnaire Date Thrive assessed: 10/28/24 I am a: Patient What is your living situation today?: I have a steady place to live Within the past 12 months, did the food you bought not last and you didn't have the money to get more?: Never true Within the past 12 months, did you worry whether your food would run out before you got money to buy more?: Never true Do you have trouble paying for medicines?: No Do you have trouble getting transportation to medical appointments?: No Do you have trouble paying your heating and electricity bill?: No Do you have trouble taking care of your child, family member or friend?: No Do you have trouble with day-to-day activities such as bathing, preparing meals, shopping, managing finances, etc.?: No Are you currently unemployed and looking for a job?: No Are you interested in more education?: I choose not to answer this question Please select the resources that you would like help with: None Currently or been in a relationship where the following occur: No concerns reported THRIVE Score: 0 AUDIT C Alcohol Use Questionnaire (AUDIT-C) 1. How often do you have a drink containing alcohol?: Monthly or less 2. How many drinks containing alcohol do you have on a typical day when you are drinking?: 1 or 2 3. How often do you have six or more drinks on one occasion?: Never Total Score: 1 Score Reviewed/Action Taken: Yes NELI-7 AMB Questionnaire NELI-7 Date NELI - 7 assessed: 10/28/24 Feeling nervous, anxious, or on edge: 1 = Several days Not being able to stop or control worryin = Several days Worrying too much about different things: 1 = Several days Trouble relaxin = Several days Being so restless that it is hard to sit still: 1 = Several days Becoming easily annoyed or irritable: 1 = Several days Feeling afraid as if something awful might happen: 1 = Several days Total NELI-7 score (0-4 normal; 5-9 mild; 10-14 moderate; 15-21 severe): 7 Source: Developed by Drs. Reji Polanco, Kylah Israel, Jonny Red and colleagues, with an educational riya from [employer]. NELI-7 Assessment Billing NELI-7 Assessment Tool: NELI-7 Assessment 20819 Review of Systems Const Details: Denies chills, Denies fatigue, Denies fever(s), Denies headache(s) and Denies weakness HEENT Denies change in vision, Denies dizziness, Denies headache(s), Denies hearing loss, Denies nasal congestion, Denies sinus pain, Denies sinus pressure and Denies sore throat Card Denies chest pain, Denies lightheadedness, Denies dyspnea and Denies other (palpitations) Resp Denies cough, Denies dyspnea and Denies wheezing GI Denies abdominal pain, Denies melena, Denies hematochezia, Denies change in bowel habits, Denies dyspepsia and Denies nausea Denies hematuria and Denies dysuria Musc Denies abnormal gait, Denies myalgias, Denies arthralgias, Denies numbness and Denies tingling Skin/Breast Denies rash, Denies unusual bruising and Denies wounds Neuro Denies abnormal gait, Denies dizziness, Denies headache(s), Denies memory loss, Denies numbness, Denies Sensory deficit (Neuro), Denies tingling and Denies weakness Psych Denies anxiety, Denies depression and Denies memory loss Endo Denies cold intolerance, Denies fatigue, Reports heat intolerance, Denies polydipsia and Denies polyuria Albino/Lymph Denies easy bleeding and Denies easy bruising Aller/Immun Denies wheezing Physical exam (Primary Care) Vital Signs: Last Vital Signs Temp 98.3 F 10/28/24 15:15 Pulse 100 10/28/24 15:28 Resp 16 10/28/24 15:15 BP 112/76 10/28/24 15:28 Pulse Ox 97 03/21/25 15:15 Oxygen Delivery Method Room Air 10/28/24 15:15 BMI result Body Mass Index 25.3 Tobacco/Smoking Status: Tobacco use Status Tobacco use date assessed 10/28/24 10/28/24 15:15 Patient Tobacco Use Status Former Tobacco user 10/28/24 15:15 e-Cigarette/Vaping Use Former Use 10/28/24 15:15 PHQ-9: PHQ-9 Score PHQ-9: Total score 0 10/28/24 15:26 Depression Screening Interpretation: Negative Thrive Assessment: Date of Thrive Assessment Date Thrive assessed 10/28/24 10/28/24 15:15 Currently or been in a relationship where the following occur: No concerns reported Const Other: General: no acute distress, well developed, alert and awake Nutritional Appearance: well nourished Orientation/consciousness: patient oriented x3 HENMT Head: Yes normocephalic and Yes atraumatic Ears: hearing grossly normal bilaterally and TM's normal bilaterally General nose exam: Normal external nose present and Normal nares present Mouth: Normal oral and palatal mucosa present and moist mucous membranes Teeth and gingiva: dentition normal Throat: Yes oropharynx normal Eyes Pupils: Equal, round and reactive pupils present and Pupil accommodation reflex normal EOM: EOMs intact bilaterally Neck Neck: Yes normal visual inspection, Yes no lymphadenopathy and Yes trachea m idline Thyroid: Thyroid normal Carotids: no bruits Lymphatic: no lymphadenopathy noted Chest Chest palpation & inspection: normal inspection of the chest Resp Effort & Inspection: normal respiratory effort Auscultation: clear to auscultation bilaterally Cardio Rate: regular rate Rhythm: regular rhythm Heart sounds: S1 normal heart sound present, S2 normal heart sound present, no gallops, no murmurs and no rubs Bruits: no abdominal aortic bruits and no carotid bruits GI Palpation (GI): No Abdominal aortic bruit present, Soft to palpation, nontender, No hepatosplenomegaly present and No Rebound tenderness present Auscultation: normal bowel sounds General: Yes no CVA tenderness Back/Spine/Pelvis Back: no CVA tenderness Cervical Spine: cervical ROM normal and No Cervical spine tenderness Thoracic/Lumbar Spine: thoraco-lumbar ROM normal, No pain with thoraco-lumbar ROM, No thoracic spinal tenderness and No lumbar spinal tenderness Skin General: warm and dry. Normal skin color. Normal skin turgor Lesions: no lesions Rashes: no rashes Trauma: no lacerations or abrasions Wounds: no wounds Nails: normal Neuro General: patient oriented x3, gait normal and CN's II-XI intact bilaterally Cranial nerves: Yes Equal, round and reactive pupils present Cognition (Neuro): normal cognition Gait exam (Neuro): Normal gait present Motor exam (neuro): 5/5 motor strength present throughout Sensory Exam: No Sensory deficit (Neuro) Deep tendon reflexes (DTR's): Right patellar reflex intensity grade: 2+ and Left patellar reflex intensity grade: 2+ Extrem General: Yes normal to inspection, No edema and No calf tenderness Psych Appearance: grossly normal Affect: normal affect Attitude: cooperative Thought process: Normal thought process present Immunizations Boostrix Tdap 2.5 Lf unit-8 mcg-5 Lf/0.5 mL intramuscular syringe Performing Provider: Isabel Magallanes CNP Performing Location: [facility] [place] [facility] Administered by: Sunny Fine RN on 10/28/24 15:54 Dose Route Admin Location Dispensed Lot Number Expiration Date [facility] Hand Kiss Setter 0.5 mL IM Left Deltoid 0.5 mL [id number] 11/26/26 [id number] [employer] VIS Given Date VIS Provided VIS Publication Date 10/28/24 Single Vaccine 21 Eligibility Eligibility Date Funding Source Not [facility] Eligible 10/28/24 Private Coding Level of Care Code Est Pt Prev Care 18-39y(37745) Diagnoses Physical exam, annual Z00.00 Anxiety and depression F41.9; F32.A Heat intolerance R68.89 Excessive sweating R61 Myopia H52.10 Laboratory tests ordered as part of a complete physical exam (CPE) Z00.00 Additional Codes NELI-7 Assessment Billing - NELI-7 Assessment Tool: NELI-7 Assessment 20794 ([id number]) PHQ-9 - 88909 - PHQ-9 Billing: Yes ([id number]) Assessment & Plan Assessment & Plan (1) Physical exam, annual: Code(s): Z00.00 - Encounter for general adult medical examination without abnormal findings Category: Medical Plan: No significant functional limitations noted. Advised to fast for 10-12 hours, may drink water, and perform lab work 2-3 days before next visit. Follow-up for telehealth visit in 2-3 weeks. Return sooner with symptoms or concerns. Verbalized understanding and agreed with treatment plan. (2) Anxiety and depression: Code(s): F41.9 - Anxiety disorder, unspecified; F32.A - Depression, unspecified Category: Medical Plan: Controlled anxiety and depressive symptoms. NELI-7 score reveals mild anxiety. PHQ-9 score is normal. No history of psychotropic medications. Routine exercise encouraged. Follow-up with symptoms or concerns. Verbalized understanding and agreed with treatment plan. (3) Heat intolerance: Code(s): R68.89 - Other general symptoms and signs Category: Medical Plan: Reports hot flashes and sweating especially at night. Her symptoms have been ongoing for the past 1 year and intensified after her seed packer changed her OCP in 05/2024. Her symptoms have been ongoing for the past 1 year and has progressively worsened. She has family of perimenopause in the last 30s. Likely perimenopause although hyperthyroidism is possible. Will check labs including TSH/T4. She is followed by head greenskeeper. Return with worsening or new symptoms. Verbalized understanding and agreed with treatment plan. (4) Excessive sweating: Code(s): R61 - Generalized hyperhidrosis Category: Medical Plan: Plan as above. (5) Myopia: Code(s): H52.10 - Myopia, unspecified eye Category: Medical Plan: She wears prescription glasses. Last eye exam was over a year ago. She will follow up with Ophthalmology for routine eye exam. She will sign a release for her PCP to obtain her Ophthalmology record. (6) Laboratory tests ordered as part of a complete physical exam (CPE): Code(s): Z00.00 - Encounter for general adult medical examination without abnormal findings Category: Medical Plan: Fasting labs ordered as part of a complete physical exam. Advised to fast for at least 10 hours before getting labs drawn. May drink water Verbalized understanding and agreed with treatment plan. Orders: Orders Complete Blood Count Auto Diff Today Z00.00 - Encounter for general adult medical examination without abnormal findings Comprehensive [place]. Panel Fast Today Z00.00 - Encounter for general adult medical examination without abnormal findings TSH reflex Free T4 Today Z00.00 - Encounter for general adult medical examination without abnormal findings UA CC w/rflx Micro + Cult Today Z00.00 - Encounter for general adult medical examination without abnormal findings TDaP Immunization Today Z23 - Encounter for immunization Lipid Panel Today Z00.00 - Encounter for general adult medical examination without abnormal findings Microalbumin, Random (w Creat) Today Z00.00 - Encounter for general adult medical examination without abnormal findings Vitamin D 25-OH Total Today Z00.00 - Encounter for general adult medical examination without abnormal findings
[2024-10-28 15:15] VITALS: BP 139/70; PULSE 110; RESP 16; TEMP 36.8; O2SAT 97; BMI 25.3
[2024-10-28 15:28] VITALS: BP 112/76; PULSE 100
--- OUTSIDE RECORDS SUMMARY | 2024-10-28 17:12 | XMS_ITS | Patient Health Record ---
Author Organization [facility] OB/ INTERVENTION TEACHER [facility], [facility] Address [address] [address] Care Team Providers Care Cellar Supervisor Name Role Phone Arianna Keith Unavailable [phone] ALLERGIES No Known Allergies REASON FOR REFERRAL No Information MEDICATIONS Medication SIG (Take, Route, Frequency, Duration) Notes Start Date End Date Status Drospirenone-Ethinyl Estradiol 3-0.03 MG 1 tablet Orally Once a day for 28 day(s) 10/09/2021 Active SOCIAL HISTORY Tobacco Use: Social History Observation Description Date Details (start date - stop date) Never Smoker NA - NA Sex Assigned At : Social History Observation Description Sex Assigned At Unknown Tobacco Use/Smoking Question Answer Notes Are you a nonsmoker? Yes Alcohol Screen (Audit-C) Question Answer Notes Did you have a drink containing alcohol in the p ast year? No Points 0 Interpretation Negative PROBLEMS Problem Type ICD Code Onset Dates Problem Status W/U Status Risk SNOMED Code Notes Problem PMS (premenstr ual syndrome) (N94.3) Active confirmed Premenstrual tension syndrome (92049499) PLAN OF TREATMENT Pending Test Test Name Order Date Mammogram Screening 10/09/2021 Insurance Providers Payer Name Payer Address Payer Phone Subscriber Number Group Number Insured Name Patient Relationship to Insured Coverage Start Date Coverage End Date [facility] [address] [place] [address] [id number] VIOLET CARY Self - patient is the insured 2 MEDICAL (GENERAL) HISTORY Medical History History ICD Code Dysmenorrhea PMS Surgical History Surgery Date(Month/Year) appendectomy ( [place]) 1998
--- OUTSIDE RECORDS SUMMARY | 2024-10-28 17:12 | XMS_ITS | Patient Health Record ---
Author Organization [facility] Billing Info Address [address] [place], [place] [address] Care Team Providers Care Pharmacovigilance Safety Expert Name Role Phone ALAINA MURPHY Unavailable [phone] Reason For Referral No Information Plan Of Treatment No Information Insurance Providers Payer Name Payer Address Payer Phone Subscriber Number Group Number Insured Name Patient Relationship to Insured Coverage Start Date Coverage End Date [facility] [address] [address] [facility] [place] [place], [place] [id number] [phone] [id number] Maya Vargas Self - patient is the insured 9 9
== END 2024-10-28 15:56 | disposition home or self-care (01) ==
LOC: HO.HMCFM 15:09
PROVIDERS: PCP Nurse Practitioner Family; Visit Provider Nurse Practitioner Family
DX: Z00.00 Encounter for general adult medical examination without abnormal findings (principal); F41.9 Anxiety disorder, unspecified; F32.A Depression, unspecified; R68.89 Other general symptoms and signs; R61 Generalized hyperhidrosis; H52.10 Myopia, unspecified eye; Z23 Encounter for immunization

== ENCOUNTER → 2024-10-28 15:08 | Outpatient (BNVA) | payer BC, SELFPAY | PROVIDERS: PCP Nurse Practitioner Family; Visit Provider Nurse Practitioner Family | DX: Z00.00 Encounter for general adult medical examination without abnormal findings (principal); Z23 Encounter for immunization; F41.9 Anxiety disorder, unspecified; F32.A Depression, unspecified; R68.89 Other general symptoms and signs; R61 Generalized hyperhidrosis; H52.10 Myopia, unspecified eye | CPT/HCPCS: 90471; 90715; 96127 ==

== ENCOUNTER 2024-11-11 15:43 | Outpatient (AMB) | payer BC, SELFPAY ==
--- NOTE | 2024-11-11 16:03 | A.OFFVIS_ITS ---
Vital Signs 11/11/24 16:06 BP 134/76 Intake Visit Reasons: control follow up Accompanied by: Self / Same As Patient Allergies Seasonal Allergies Allergy (Severe, Verified 11/11/24 16:06) Itchy Eyes HPI Comments Details: Presenting for control pill follow-up with no complaints, menstrual cycles are regular and light. [facility] Medical History Skin mole Depression Anxiety Incontinence of urine Acid reflux Sinusitis Surgical History Hx of appendectomy Family History Father Hyperlipidemia Diabetes Hypertension Maternal Grandmother Thyroid disorder Psychiatric disorder Maternal Grandfather Psychiatric disorder Hypertension Paternal Grandfather Hypertension Other Mental health disorder Social History Household Members: Spouse Both parents involved: Yes Housing: Apartment Alcohol intake: current Alcohol intake frequency: holidays/special occasions only Alcohol type: wine Patient Tobacco Use Status: Former Tobacco user Years Smoked: 10 e-Cigarette/Vaping Use: Former Use Second Hand Smoke Exposure: Yes Substance Use Type: Marijuana service: No Current occupational status: employed Current occupation: [employer] Current occupational exposures/hazards: No Sexual orientation: Straight/Heterosexual Gender identity: Female Cognitive needs: No Hearing needs: No Vision needs: No Review of Systems Const All systems reviewed & are unremarkable except as noted in HPI and below Reports as per HPI and Reports no additional complaints GI Reports no additional complaints Reports no additional complaints Physical Exam Vital Signs: Last Vital Signs BP 134/76 11/11/24 16:06 Assessment & Plan Assessment & Plan (1) Contraceptive management: Code(s): Z30.9 - Encounter for contraceptive management, unspecified Category: Medical Plan: control pill prescription refilled for a year. All questions answered, the patient verbalized understanding Medications: Refilled L norgest/e.estradiol-e.estrad 0.15 mg-30 mcg (84)/10 mcg (7) 1 tab PO DAILY 84 days 84 ea 3RF Coding Level of Care Code Est Pt Level 3 (36335) Diagnoses Contraceptive management Z30.9
[2024-11-11 16:06] VITALS: BP 134/76
--- OUTSIDE RECORDS SUMMARY | 2024-11-11 16:49 | XMS_ITS | Patient Health Record ---
Author Organization [facility] OB/ ETHANOL OPERATIONS MANAGER [facility], [facility] Address [address] [address] Care Team Providers Care Newspaper Library Manager Name Role Phone Arianna Keith Unavailable [phone] ALLERGIES No Known Allergies REASON FOR REFERRAL [...] syndrome) (N94.3) Active confirmed Premenstrual tension syndrome (63171733) PLAN OF TREATMENT Pending Test Test Name Order Date Mammogram Screening 10/09/2021 Insurance Providers Payer Name Payer Address Payer Phone Subscriber Number Group Number Insured Name Patient Relationship to Insured Coverage Start Date Coverage End Date [facility] [address] [place] [address] [id number] VIOLET CARY Self - patient is the insured 2 MEDICAL (GENERAL) HISTORY Medical History History ICD Code Dysmenorrhea PMS Surgical History Surgery Date(Month/Year) appendectomy ( [place]) 1998
--- OUTSIDE RECORDS SUMMARY | 2024-11-11 16:49 | XMS_ITS | Patient Health Record ---
Author Organization [facility] Billing Info Address [address] [place], [place] [address] Care Team Providers Care Powered Bridge Specialist Name Role Phone ALAINA MURPHY Unavailable [phone] Reason For Referral No Information Plan Of Treatment No Information Insurance Providers Payer Name Payer Address Payer Phone Subscriber Number Group Number Insured Name Patient Relationship to Insured Coverage Start Date Coverage End Date R [address] [address] [facility] [place] [place], [place] [id number] Maya Vargas Self - patient is the insured 9 9
== END 2024-11-11 17:38 ==
LOC: HO.HWS 15:43
PROVIDERS: PCP Nurse Practitioner Family; Visit Provider Obstetrics & Gynecology
DX: Z30.9 Encounter for contraceptive management, unspecified (principal)
CPT/HCPCS: 99213

== ENCOUNTER → 2024-11-11 15:43 | Outpatient (BNVA) | payer BC, SELFPAY | PROVIDERS: PCP Nurse Practitioner Family; Visit Provider Obstetrics & Gynecology ==

== ENCOUNTER 2025-02-03 07:28 | Outpatient (REF) | payer BC, SELFPAY ==
[2025-02-03 11:22] LABS: MANUAL DIFF FLAG NO
[2025-02-03 11:25] LABS: Appearance Urine Clear; Color Urine Yellow; Glucose Urine UA Negative (Negative); Leukocyte Esterase Urine Negative (Negative); Nitrite Urine Negative (Negative); Specific Gravity - Urine 1.025 (1.005-1.025); UMIC TRIGGER UACC YES; Urine Blood Small (1+) (Negative); Urine Ketones Trace mg/dL (Negative); Urine Protein Negative (Neg-Trace)
[2025-02-03 11:28] LABS: Basophils Absolute Auto 0.1 X10*3/uL (0.0-0.2); Basophils Percent Auto 0.4 % (0-2); Eosinophils Absolute Auto 0.5 X10*3/uL (0.0-0.4); Eosinophils Percent Auto 4.4 % (0-4); Hematocrit 44.3 % (37.0-47.0); Hemoglobin 14.8 g/dl (12.0-16.0); Imm Gran Abs Auto 0.04 X10*3/uL (0.00-0.03); Imm Gran Pct Auto 0.4 % (0.0-0.4); Lymphocytes Absolute Auto 3.4 X10*3/uL (1.2-4.9); Lymphocytes Percent Auto 30.6 % (20-40); Mean Corpuscular HGB Conc 33.4 g/dl (31.0-35.0); Mean Corpuscular Hemoglobin 30.1 pg (27.0-33.0); Monocytes Absolute Auto 0.7 X10*3/uL (0.1-1.2); Monocytes Percent Auto 6.2 % (2-11); Neutrophils Absolute Auto 6.5 x10*3/uL (2.0-8.3); Platelet Count 317 X10*3/uL (160-400); Red Blood Count 4.92 X10*6/uL (4.20-5.50); Red Cell Distribution Width 12.9 % (11.0-16.0); White Blood Count 11.2 X10*3/uL (4.8-10.8)
[2025-02-03 11:42] LABS: Bacteria Urine None Seen (None Seen); Hyaline Casts Urine 0-2 /LPF (0-2); RBC Urine 0-2 /HPF (0-2); Squamous Epithelial Cell Urine 0-2 /HPF (0-2); WBC Urine 0-5 /HPF (0-5)
[2025-02-03 11:48] LABS: Microalbum/Creatinine Ratio Ur 3.2 ug/mg cr (<30)
[2025-02-03 12:01] LABS: Alanine Aminotransferase 19 U/L (0-31); Alkaline Phosphatase 51 U/L (39-117); Anion Gap 13 (12-20); Aspartate Amino Transferase 26 U/L (5-31); Bilirubin Total 0.4 mg/dL (0.0-1.0); Blood Urea Nitrogen 12 mg/dL (9-16); Calcium 8.8 mg/dL (8.4-10.2); Carbon Dioxide 22 mmol/L (22-29); Chloride 107 mmol/L (96-108); Cholesterol 131 mg/dL (<200); Estimated Glomerular Filt Rate > 60; Glucose Fasting 93 mg/dL (60-99); HDL Cholesterol 52 mg/dL (>40); LDL Cholesterol Calculated 65 mg/dL (<100); Sodium 138 mmol/L (135-145); TSH reflex Free T4 0.84 uIU/mL (0.32-4.0); Total Protein 6.7 g/dL (6.5-8.0); Triglycerides 72 mg/dL (<150); Vitamin D 25-OH Total 62.1 ng/mL (>30)
== END 2025-02-03 07:29 | disposition home or self-care (01) ==
LOC: HO.WFDLDS 07:28
PROVIDERS: Visit Provider Nurse Practitioner Family
DX: Z00.00 Encounter for general adult medical examination without abnormal findings (principal)
CPT/HCPCS: 36415; 80053; 80061; 81001; 81003; 82043; 82306; 82570; 84443; 85025

== ENCOUNTER 2025-03-23 07:37 | Outpatient (REF) | payer BC, SELFPAY ==
--- OUTSIDE RECORDS SUMMARY | 2025-03-23 07:41 | XMS_ITS | Patient Health Record ---
Author Organization [facility] OB/ SUPERVISOR TUNNEL HEADING [facility], [facility] Address [address] [address] Care Team Providers Care Turf Manager Name Role Phone Arianna Keith Unavailable [phone] ALLERGIES No Known Allergies REASON FOR REFERRAL [...] Status Risk SNOMED Code Notes Problem PMS (premenstrua l syndrome) (N94.3) Active confirmed PLAN OF TREATMENT Pending Test Test Name Order Date Mammogram Screening 10/09/2021 Insurance Providers Payer Name Payer Address Payer Phone Subscriber Number Group Number Insured Name Patient Relationship to Insured Coverage Start Date Coverage End Date [facility] [address] [place] [address] [id number] VIOLET CARY Self - patient is the insured MEDICAL (GENERAL) HISTORY Medical History History ICD Code Dysmenorrhea PMS Surgical History Surgery Date(Month/Year) appendectomy ( [place]) 1998
--- OUTSIDE RECORDS SUMMARY | 2025-03-23 07:42 | XMS_ITS | Clinical Summary ---
Author Organization [facility] Address [address] [place] [address] [place] [address] Phone Care Team Providers Care Curriculum Specialist Name Role Phone ElpidioIsabel gallegos Brandon LCAC RADAR OPERATOR/NAVIGATOR Primary Care Provider [phone] Social History Tobacco Use Types Packs/Day Years Used Date Smoking Tobacco: Never Assessed Education Answer Date Recorded Are you interested in more education? Not on vero e 03/21/2025 Are you concerned about learning? Not on file 03/21/2025 No 03/21/2025 No 03/21/2025 Digital Access Answer Date Recorded No 03/21/2025 No 03/21/2025 Reliable internet access at home? Not on file 03/21/2025 Device with a working camera? Not on file Comments Unknown Sex and Gender Information Value Date Recorded Sex Assigned at Not on file Legal Sex Female 9:07 AM EDT Gender Identity Not on file Sexual Orientation Not on file Plan of Treatment Upcoming Encounters Date Type Department Care Team (Late st Contact Info) Description 06/12/2025 8:00 AM EST Office Visit [facility] [address] [place] [address] Nasrin Escobar MD [address] [facility], [address] [place] [address] Health Maintenance Due Date Last Done Comments Adult Td,Tdap Booster 1985 DEPRESSION SCREENING 1999 SMOKING Hx and SMOKELESS TOB ACCO SCREENING 01/26/2000 HEPATITIS C SCREENING 2005 HIV ONE-TIME SCREENING (18-6 5 YEARS) 2005 PAP SMEAR 01/26/2008 COVID-19 VACCINE (2023-2 5 season) 2024 HEPATITIS A VACCINES Aged Out No long er eligible based on patient's age to complete this topic HIB VACCINES Aged Out No longer eligi ble based on patient's age to complete this topic MENINGOCOCCAL VACCINES (ACWY) Aged Out No longer eligible based on patient's age to complete this topic MENINGOCOCCAL VACCINES (B) Aged Out N o longer eligible based on patient's age to complete this topic PNEUMOCOCCAL VACCINES (0-49 years) Aged Out No longer eligible based on patient's age to complete this topic Medical Devices Not on file Insurance * Guarantor: Maya Vargas Account Type Relation to Patient Date of Phone Billing Address Personal/Family Self 1985 [address] [place], [place] [id number] [place] [address] * Guarantor: Maya Vargas Account Type Relation to Patient Date of Phone Billing Address Personal/Family Self 1985 [address] [place] [address] [facility] * Guarantor: Maya Vargas Account Type Relation to Patient Date of Phone Billing Address Personal/Family Self [address] [place] [address] [facility] Care Teams Curriculum Specialist Relationship Specialty Start Date End Date Isabel Magallanes NP [address] [place] [address] PCP - General Nurse Practitioner 03/21/25 Additional Source Comments The information contained in this document represents components of the legal health record. It is not the complete legal health record.[facility]
--- OUTSIDE RECORDS SUMMARY | 2025-03-23 07:42 | XMS_ITS | Patient Health Record ---
Author Organization [facility] Billing Info Address [address] [place], [place] [id number] Care Team Providers Care Supervisor Cabinetmaker Name Role Phone ALAINA MURPHY Unavailable [phone] Reason For Referral No Information Plan Of Treatment No Information Insurance Providers Payer Name Payer Address Payer Phone Subscriber Number Group Number Insured Name Patient Relationship to Insured Coverage Start Date Coverage End Date [facility] [address] [address] [facility] [place], [place] [id number] Maya Vargas Self - patient is the insured 9 9
[2025-03-23 11:37] LABS: White Blood Count 9.5 X10*3/uL (4.8-10.8)
[2025-03-23 11:43] LABS: Appearance Urine Clear; Glucose Urine UA Negative (Negative); PH 5.5 (5.0-9.0); Specific Gravity - Urine <= 1.005 (1.005-1.025)
== END 2025-03-23 07:38 | disposition home or self-care (01) ==
LOC: HO.WFDLDS 07:37
PROVIDERS: Visit Provider Nurse Practitioner Family
DX: Z00.00 Encounter for general adult medical examination without abnormal findings (principal); D72.829 Elevated white blood cell count, unspecified
CPT/HCPCS: 36415; 81003; 85048

== ENCOUNTER 2025-05-01 11:38 | Outpatient (AMB) | payer BC, SELFPAY ==
--- NOTE | 2025-05-01 11:32 | A.OFFPC_ITS ---
Intake Visit Reasons: Telemedicine follow up for 2nd round of bloodwork Intake Note: patient here for Telehealth Follow up on blood work Cable Installer Required: No Is last menstrual period known: Yes Last menstrual period: 05/01/25 Post menopausal: No Patient : No Allergies Seasonal Allergies Allergy (Severe, Verified 05/01/25 11:33) Itchy Eyes Tobacco use date assessed: 05/01/25 Dental Screening Dental Screen Date: 05/01/25 Did you have a dental visit in the last 12 months?: Yes Did you have a dental problem in the last 6 months where you did not have access to dental care?: No Was dental information given to patient?: Patient has dentist HPI HPI Comments History of Present Illness Details 40-year-old [place] [facility] results. She notes that she experienced vasomotor symptoms a month after she abruptly stopped taking OCP. She has an appointment with a new diagnostic cardiac sonographer at [facility]. She denies acute symptoms at this time. [facility] Medical History Skin mole Depression Anxiety Incontinence of urine Acid reflux Sinusitis Surgical History Hx of appendectomy Family History Father Hyperlipidemia Diabetes Hypertension Maternal Grandmother Thyroid disorder Psychiatric disorder Maternal Grandfather Psychiatric disorder Hypertension Paternal Grandfather Hypertension Other Mental health disorder Social History Household Members: Spouse Both parents involved: Yes Housing: Apartment Alcohol intake: current Alcohol intake frequency: holidays/special occasions only Alcohol type: wine Patient Tobacco Use Status: Former Tobacco user Years Smoked: 10 e-Cigarette/Vaping Use: Former Use Second Hand Smoke Exposure: Yes Substance Use Type: Marijuana Patient : No service: No Current occupational status: employed Current occupation: [employer] Current occupational exposures/hazards: No Sexual orientation: Straight/Heterosexual Gender identity: Female Cognitive needs: No Hearing needs: No Vision needs: No Female Reproductive History Menstrual Date of last menstrual period: 05/01/25 Questionnaire Thrive Questionnaire Date Thrive assessed: 10/24/24 I am a: Patient What is your living situation today?: I have a steady place to live Within the past 12 months, did the food you bought not last and you didn't have the money to get more?: Never true Within the past 12 months, did you worry whether your food would run out before you got money to buy more?: Never true Do you have trouble paying for medicines?: No Do you have trouble getting transportation to medical appointments?: No Do you have trouble paying your heating and electricity bill?: No Do you have trouble taking care of your child, family member or friend?: No Do you have trouble with day-to-day activities such as bathing, preparing meals, shopping, managing finances, etc.?: No Are you currently unemployed and looking for a job?: No Are you interested in more education?: I choose not to answer this question Please select the resources that you would like help with: None Currently or been in a relationship where the following occur: No concerns reported THRIVE Score: 0 NELI-7 AMB Questionnaire NELI-7 Date NELI - 7 assessed: 10/28/24 Source: Developed by Drs. Reji Polanco, Kylah Israel, Jonny Red and colleagues, with an educational riya from [employer]. Review of Systems Const Details: Denies chills, Denies fatigue, Denies fever(s), Denies headache(s) and Denies weakness Cardiac Denies chest pain, Denies claudication, Denies leg edema, Denies lightheadedness, Denies palpitations, Denies dyspnea, Denies dyspnea on exertion, Denies orthopnea and Denies other (Loss of consciousness) Resp Denies cough, Denies excessive phlegm production, Denies dyspnea, Denies dyspnea on exertion, Denies snoring and Denies wheezing Physical exam (Primary Care) Tobacco/Smoking Status: Tobacco use Status Tobacco use date assessed 05/01/25 05/01/25 11:35 Patient Tobacco Use Status Former Tobacco user 05/01/25 11:35 e-Cigarette/Vaping Use Former Use 05/01/25 11:35 Thrive Assessment: Date of Thrive Assessment Date Thrive assessed 10/24/24 05/01/25 11:35 Currently or been in a relationship where the following occur: No concerns reported Const Other: Patient is alert oriented x3 Telehealth Telehealth Telehealth Platform: Telephone Location of provider rendering services: practice address Location of patient: address on file Patient Identification confirmed using: Name, : Yes Telehealth method: voice only Patient verbally consented to treatment: Yes Patient verbally consented to billing insurance company: Yes Patient informed of any privacy concerns related to visit: Yes Coding Level of Care Code Tele Est Pt Level 3 (14962) Diagnoses Leukocytosis D72.829 Time Spent (min) 10 Assessment & Plan Assessment & Plan (1) Leukocytosis: Code(s): D72.829 - Elevated white blood cell count, unspecified Category: Medical Plan: Resolved. Other recent labs are unremarkable. Follow-up for an extended physical exam after 10/28/2025. Return sooner with symptoms or concerns. Verbalized understanding and agreed with the plan.
--- OUTSIDE RECORDS SUMMARY | 2025-05-01 14:20 | XMS_ITS | Clinical Summary ---
Author Organization [facility] Address [address] [place] [address] [place] [address] Phone Care Team Providers Care E Business Project Manager Name Role Phone ElpidioIsabel gallegos Brandon TELEVISION CABINET FINISHER Primary Care Provider [phone]- [phone] Social History Tobacco Use Types Packs/Day Years [...] Office Visit [facility] [address] [place] [address] [place] [address] Nasrin Escobar MD [address] [facility], [address] [place] [address] Health Maintenance Due Date Last Done Comments Adult Td,Tdap Booster 1985 DEPRESSION SCREENING 1999 SMOKING Hx and SMOKELESS TOB ACCO SCREENING 01/26/2000 HEPATITIS C SCREENING 2005 HIV ONE-TIME SCREENING (18-6 5 YEARS) 2005 PAP SMEAR 01/26/2008 INFLUENZA VACCINE (#1) 2025 COVID-19 VACCINE ( - 2023-2 5 season) 2025 HEPATITIS A VACCINES Aged Out No long [...] Billing Address Personal/Family Self 1985 [address] [place] [address] [facility] * Guarantor: Maya Vargas Account Type Relation to Patient Date of Phone Billing Address Personal/Family Self 1985 [address] [place] [address] [facility] [place] [facility] * Guarantor: Vargas, Maya Account Type Relation to Patient Date of Phone Billing Address Personal/Family Self [address] [place] [address] [facility] Care Teams E Business Project Manager Relationship Specialty Start Date End Date Isabel Magallanes NP [address] [place] [address] PCP - General Nurse Practitioner 03/21/25 Additional Source Comments The information contained in this document represents components of the legal health record. It is not the complete legal health record.[facility]
--- OUTSIDE RECORDS SUMMARY | 2025-05-01 14:20 | XMS_ITS | Patient Health Record ---
Author Organization [facility] Billing Info Address [address] [place], [place] [address] Care Team Providers Care Pier Master Assistant Name Role Phone ALAINA MURPHY Unavailable [phone] Reason For Referral No Information Plan Of Treatment No Information Insurance Providers Payer Name Payer Address Payer Phone Subscriber Number Group Number Insured Name Patient Relationship to Insured Coverage Start Date Coverage End Date [facility] [address] [address] [facility] [place], [place] [id number] Maya Vargas Self - patient is the insured 9 9
--- OUTSIDE RECORDS SUMMARY | 2025-05-01 14:20 | XMS_ITS | Patient Health Record ---
Author Organization [facility] Address [address] [address] Care Team Providers Care Veneer Sorter Name Role Phone Arianna Keith Unavailable [phone] ALLERGIES No Known Allergies REASON FOR REFERRAL [...] syndrome) (N94.3) Active confirmed Premenstrual tension syndrome ([id number]) PLAN OF TREATMENT Pending Test Test Name Order Date Mammogram Screening 10/09/2021 Insurance Providers Payer Name Payer Address Payer Phone Subscriber Number Group Number Insured Name Patient Relationship to Insured Coverage Start Date Coverage End Date [facility] [address] [place] [phone] [id number] VIOLET CARY Self - patient is the insured 2 MEDICAL (GENERAL) HISTORY Medical History History ICD Code Dysmenorrhea PMS Surgical History Surgery Date(Month/Year) appendectomy ( [place]) 1998
== END 2025-05-01 12:59 | disposition home or self-care (01) ==
LOC: HO.HMCFM 11:38
PROVIDERS: PCP Nurse Practitioner Family; Visit Provider Nurse Practitioner Family
DX: D72.829 Elevated white blood cell count, unspecified (principal)